=== PATIENT | male | born 1995 | race American Indian/Alaskan Native ===

== ENCOUNTER 2018-05-17 10:27 | Emergency (ER) | payer SELFPAY ==
[2018-05-17 11:02] VITALS: BP 114/52
== END 2018-05-17 13:48 ==
LOC: ED 10:27
DX: Z11.3 Encounter for screening for infections with a predominantly sexual mode of transmission (principal); Z53.21 Procedure and treatment not carried out due to patient leaving prior to being seen by health care provider

== ENCOUNTER 2018-05-20 08:43 | Emergency (ER) | payer OTHER ==
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
[2018-05-20] MEDS ORDERED: BOOSTRIX IM ONE (10:27)
[2018-05-20 10:52] VITALS: BP 110/70
== END 2018-05-20 10:50 | disposition home or self-care (01) ==
LOC: ED 08:43
DX: J01.90 Acute sinusitis, unspecified (principal); Z87.891 Personal history of nicotine dependence
CPT/HCPCS: 90471; 90715; 93005; 93010; 99282